=== PATIENT | female | born 1980 | race Caucasian/White ===

== ENCOUNTER 2024-01-20 12:47 | Emergency (ER) | payer BC ==
[~2024-01-20] VITALS: Ht 175.3 cm; Wt 69.4 kg
[2024-01-20 12:47] VITALS: BP_SYST 136; PULSE 86; RESP 18; TEMP 97.8; O2SAT 99
[2024-01-20 13:21] LABS: BASOPHILS % (AUTO) 0.6 % (0.0-2.0); EOSINOPHILS % (AUTO) 0.6 % (0.0-4.0); HEMATOCRIT 42.7 % (36-48); HEMOGLOBIN 14.9 g/dL (12.0-16.0); LYMPHOCYTES # (AUTO) 1.9 K/uL (1.0-5.5); LYMPHOCYTES % (AUTO) 35.4 % (20.5-51.5); MEAN CORPUSCULAR HEMOGLOBIN 33 pg (27-31); MEAN CORPUSCULAR HGB CONC 35 % (32-36); MEAN CORPUSCULAR VOLUME 95 fL (79.0-98.0); MONOCYTES # (AUTO) 0.3 K/uL (0.0-1.0); MONOCYTES % (AUTO) 5.3 % (1.7-9.3); NEUTROPHILS # (AUTO) 3.2 K/uL (1.8-7.7); NEUTROPHILS % (AUTO) 58.1 % (40.0-70.0); PLATELET COUNT (AUTO) 185 K/uL (130-430); RED BLOOD CELL COUNT(AUTO) 4.51 MIL/uL (4.2-6.2); WHITE BLOOD COUNT (AUTO) 5.5 K/uL (4.8-10.8)
[2024-01-20] MEDS: KETOROLAC TROMETHAMINE 30 MG VIAL IM ONE (13:24)
[2024-01-20] MEDS: LORazepam 1 MG TABLET PO ONE (13:24)
[2024-01-20 13:52] LABS: ANION GAP 9 (5-15); CALCIUM 8.9 mg/dL (8.4-11.0); CARBON DIOXIDE 28 mmol/L (23-29); CHLORIDE 103 mmol/L (98-107); CREATININE 0.68 mg/dL (0.55-1.30); GFR AFRICAN AMERICAN 122 mL/min (>90); GLUCOSE 94 mg/dL (74-106); POTASSIUM 3.9 mmol/L (3.5-5.1); SODIUM SERUM 140 mmol/L (136-145); UREA NITROGEN, BLOOD 8 mg/dL (8-21)
[2024-01-20 13:55] LABS: GFR NON AFRICAN-AMERICAN 101 mL/min (>90)
[2024-01-20] MEDS ORDERED: PRED50TA PO (14:12)
[2024-01-20] MEDS ORDERED: LORA-259 PO (14:12)
[2024-01-20] MEDS ORDERED: NAPR-688 PO (14:12)
[2024-01-20 14:25] VITALS: BP_SYST 132; PULSE 88; RESP 21; TEMP 97.8; O2SAT 99
== END 2024-01-20 14:25 | disposition home or self-care (01) ==
LOC: SED 12:47
DX: F41.9 Anxiety disorder, unspecified (principal); R00.2 Palpitations; M54.9 Dorsalgia, unspecified; I25.2 Old myocardial infarction; Z88.5 Allergy status to narcotic agent; Z79.899 Other long term (current) drug therapy
CPT/HCPCS: 99285; 71045; 80048; 83880; 85025; 84484; 36415; 93005; 96372; J1885